=== PATIENT | male | born 1940 | race Caucasian/White ===

== ENCOUNTER 2021-08-31 16:16 | Emergency (ER) | payer OTHER ==
[~2021-08-31] VITALS: Ht 180.3 cm; Wt 61.2 kg
[2021-08-31 17:17] LABS: ABSOLUTE NEUTROPHILS 3.3 thou/uL (1.4-8.2); BASOPHILS 0.7 % (0.0-2.0); EOSINOPHILS 1.4 % (0.0-3.0); HEMATOCRIT 40.6 % (42.0-52.0); HEMOGLOBIN 13.4 gm/dL (14.0-18.0); LYMPHOCYTES 21.3 % (24.0-44.0); MCH 31.3 pg (26.0-34.0); MCV 95.1 fL (80.0-100.0); MONOCYTES 13.9 % (1.0-8.0); PLATELET COUNT 212 thou/uL (150-400); POLYS 62.7 % (36.0-66.0); RBC 4.28 mil/uL (4.50-6.00); RDW 13.1 % (10.5-14.5); WBC 5.3 thou/uL (4.0-11.0)
[2021-08-31 17:29] LABS: CALCIUM 9.2 mg/dL (8.5-10.1); CREATININE 0.9 mg/dL (0.7-1.3); POTASSIUM 4.1 mmol/L (3.5-5.1)
[2021-08-31 17:39] LABS: ALBUMIN 3.9 g/dL (3.4-5.0); TOTAL BILIRUBIN 0.3 mg/dL (0.2-1.0); TOTAL PROTEIN 6.7 g/dL (6.4-8.2)
[2021-08-31 19:42] LABS: URINE BILIRUBIN NEGATIVE (Negative); URINE BLOOD TRACE (Negative); URINE CLARITY SL CLOUDY; URINE COLOR YELLOW; URINE GLUCOSE-RANDOM* NEGATIVE (Negative); URINE KETONES NEGATIVE (Negative); URINE LEUKOCYTES-REFLEX NEGATIVE (Negative); URINE NITRITE-REFLEX NEGATIVE (Negative); URINE PROTEIN (DIPSTICK) NEGATIVE (Negative); URINE UROBILINOGEN 0.2 E.U./dl (0.2-1.0)
[2021-08-31 19:49] VITALS: BP 108/70
--- NOTE | 2021-09-01 07:14 | EKG ---
[place] [address] [facility] [employer] [place] [address] ELECTROCARDIOGRAM REPORT Name: YOEL ALAN Room #: REG [facility]LEYQueenieQueenie#: [id number] Admission: 08/31/21 Attend Phys: Discharge: Date of : 44 Report #: [id number] [facility] ED Test Date: 2021-08-31 Test Time: 17:41:14 Pat Name: YOEL ALAN Department: Room: Gender: M Insurance Claim Representative: amelia : 1940 Requested By: Geneva Campbell Order Number: [id number] MD: Chapin Hdz Measurements Intervals [place] Rate: 55 P: 36 MT: 136 QRS: 76 QRSD: 162 T: 46 QT: 410 QTc: 393 Interpretive Statements Sinus rhythm Nonspecific intraventricular conduction delay Anteroseptal infarct, age indeterminate Lateral leads are also involved No previous ECG available for comparison Electronically Signed On 09-01-2021 7:14:34 RADIOLOGIC THERAPIST by Chapin Hdz [email or web address] <ELECTRONICALLY SIGNED> By: Chapin Hdz MD, [facility] 09/01/21 0714 [id number] Chapin Hdz MD, FACC /EPI
== END 2021-08-31 20:43 | disposition home or self-care (01) ==
LOC: ER 16:16
PROVIDERS: Nurse Practitioner Family
DX: R41.0 Disorientation, unspecified (principal); Z20.822 Contact with and (suspected) exposure to COVID-19; R53.83 Other fatigue; F32.9 Major depressive disorder, single episode, unspecified; Z88.0 Allergy status to penicillin